=== PATIENT | male | born 1955 | race Caucasian/White ===

== ENCOUNTER 2019-05-27 16:52 | Emergency (ER) | payer MEDICARE, OTHER ==
[2019-05-27 17:12] VITALS: BP 150/69
[2019-05-27] MEDS ORDERED: Tetan/Diph/Pertus SYR(Tdap)* 0.5 ML SYR(BOOSTRIX) use SYR IM ONE (17:44)
[2019-05-27] MEDS ORDERED: Lidocaine 1% MPF ** 5 ML VIAL INJ ONE (17:44)
--- NOTE | 2019-05-27 17:45 | UC ---
General HPI - HPI Summary HPI Summary: saw blade came loose from the machine and broke apart cutting his L hand in 3 places. 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 last tetanus is not known. - History of Current Complaint Chief Complaint: UCWounds Stated Complaint: LEFT INDEX FINGER LACERATION Time Seen by Provider: 05/27/19 17:40 Hx Obtained From: Patient Onset/Duration: Sudden Onset Pain Intensity: 5 Associated Signs & Symptoms: Negative: Weakness - Allergy/Home Medications Allergies/Adverse Reactions: Allergies Allergy/AdvReac Type Severity Reaction Status Date / Time No Known Allergies Allergy Verified 05/27/19 17:12 Home Medications: Home Medications Amlodipine Besylate/Benazepril [Amlodipine-Benazepril 2.5-10] 1 cap PO DAILY [History Confirmed 05/27/19] Hydrochlorothiazide TAB* [Hydrodiuril TAB*] 25 mg PO DAILY 05/27/19 [History Confirmed 05/27/19] Rabeprazole Sodium [Aciphex] 20 mg PO DAILY 05/27/19 [History Confirmed 05/27/19 ] Sitagliptin/Metform 50/500(NF) [Janumet 50/500 (NF)] 1 tab PO DAILY 05/27/19 [ History Confirmed 05/27/19] PMH/Surg Hx/FS Hx/Imm Hx - Additional Past Medical History Additional PMH: hx L 5th finger and 1mcp joint injuries. Endocrine History: Diabetes Cardiovascular History: Hypertension GI/ History: Gastroesophageal Reflux - Surgical History Surgical History: None - Family History Known Family History: Positive: Non-Contributory - Social History Alcohol Use: Weekly Substance Use Type: None Smoking Status (MU): Former Smoker Length of Time of Smoking/Using Tobacco: 30 yr When Did the Patient Quit Smoking/Using Tobacco: 2001 - Immunization History Most Recent Tetanus Shot: 30 yrs ago Review of Systems All Other Systems Reviewed And Are Negative: No Constitutional: Negative: Fever Musculoskeletal: Negative: Decreased ROM - from baseline. Neurological: Negative: Weakness, Numbness Physical Exam Triage Information Reviewed: Yes Appearance: Well-Appearing Vital Signs: Initial Vital Signs Temp 99.2 F 05/27/19 17:05 Pulse 53 05/27/19 17:05 Resp 18 05/27/19 17:05 BP 150/69 05/27/19 17:05 Pulse Ox 99 09/20/19 17:05 Vital Signs Reviewed: Yes Cardiovascular: Positive: RRR Musculoskeletal: Positive: Other: - L hand= gross s/v/m inatc compared to baseline/ Neurological: Positive: Alert Psychological: Positive: Age Appropriate Behavior Skin Exam: Normal, Other - L hand= laceration ulnar side l index finger. 2 lacerations in dorsal web between thumb and index fingers. has has a few superfial scaps as well. Diagnostics - Radiology No standard instances Radiology Interpretation Completed By: Radiologist - MPRESSION: No radiopaque foreign body is identified. Course/Dx - Course Course Of Treatment: PROCEDURE: time out. wounds prep betadine. locals with 1 % lidociane. sites explored and no FB's, tendon or ligament injuries. wounds in web are communicating. wounds irrigated with large amounts of sterile NaCl. all wounds prep betadine. lacerations close with 5-0 nylon and simple plus horizontal mattress stitches total of 6. wound lengths of 1.5cm, 1.0cm and 1.0cm. pt tolerated well. dressed by nursing. pt tolerated well. - Differential Dx - Multi-Symptom Differential Diagnoses: Other - no fb or fx's - Diagnoses Provider Diagnosis: Laceration of hand, right Discharge ED - Sign-Out/Discharge Documenting (check all that apply): Patient Departure All imaging exams completed and their final reports reviewed: Yes - Discharge Plan Condition: Stable Disposition: HOME Patient Education Materials: Care For Your Stitches (DC) Referrals: Kayode Earl MD [Primary Care Provider] - Additional Instructions: RETURN HERE FOR SUTURE REMOVAL IN 7-10 DAYS. RETURN SOONER FOR ANY CONCERNS. - Billing Disposition and Condition Condition: STABLE Disposition: Home
== END 2019-05-27 19:10 | disposition home or self-care (01) ==
LOC: UCCORT 16:52
DX: S61.211A Laceration without foreign body of left index finger without damage to nail, initial encounter (principal); W45.8XXA Other foreign body or object entering through skin, initial encounter; Y92.9 Unspecified place or not applicable; Z23 Encounter for immunization; E11.9 Type 2 diabetes mellitus without complications; I10 Essential (primary) hypertension; K21.9 Gastro-esophageal reflux disease without esophagitis; Z87.891 Personal history of nicotine dependence
CPT/HCPCS: 12002; 90471; 90715; 99211; G0463

== ENCOUNTER 2019-06-06 16:23 | Emergency (ER) | payer OTHER ==
[2019-06-06 16:42] VITALS: BP 112/73
--- NOTE | 2019-06-06 16:51 | UC ---
UC General HPI - HPI Summary HPI Summary: pt had stitches placed in his L hand 10 days ago. he is here for suture removal. he has no complaints. - History of Current Complaint Chief Complaint: UCGeneralIllness Stated Complaint: STITCHES REMOVAL Time Seen by Provider: 06/06/19 16:45 Hx Obtained From: Patient Pain Intensity: 0 Associated Signs & Symptoms: Positive: Other - no rash. Negative: Edema, Fever - Allergy/Home Medications Allergies/Adverse Reactions: Allergies Allergy/AdvReac Type Severity Reaction Status Date / Time peanut Allergy Anaphylatic Verified 06/06/19 16:33 Shock PMH/Surg Hx/FS Hx/Imm Hx Endocrine History: Diabetes Cardiovascular History: Hypertension GI/ History: Gastroesophageal Reflux - Surgical History Surgical History: None - Family History Known Family History: Positive: Non-Contributory - Social History Alcohol Use: Weekly Substance Use Type: None Smoking Status (MU): Former Smoker Length of Time of Smoking/Using Tobacco: 30 yr When Did the Patient Quit Smoking/Using Tobacco: 2001 - Immunization History Most Recent Tetanus Shot: 05/27/19 Review of Systems All Other Systems Reviewed And Are Negative: No Constitutional: Negative: Fever Skin: Negative: Rash Musculoskeletal: Negative: Decreased ROM, Edema Neurological: Negative: Weakness, Paresthesia Physical Exam Triage Information Reviewed: Yes Appearance: Well-Appearing Vital Signs: Initial Vital Signs Temp 97.2 F 06/06/19 16:34 Pulse 47 06/06/19 16:34 Resp 16 06/06/19 16:34 BP 112/73 06/06/19 16:34 Pulse Ox 99 06/06/19 16:34 Vital Signs Reviewed: Yes Skin Exam: Other - L hand= 3 suture sites that are healed without erythema or warmth. hand has gross s/v/m function. Course/Dx - Course Course Of Treatment: procedure: sutures removed. pt tolerated well. bradycardia here but pt not symptomatic and BP 112/73. - Diagnoses Provider Diagnosis: Visit for suture removal Discharge ED - Sign-Out/Discharge Documenting (check all that apply): Patient Departure All imaging exams completed and their final reports reviewed: No Studies - Discharge Plan Condition: Stable Disposition: HOME Patient Education Materials: Stitches Removal (ED) Referrals: Kayode Earl MD [Primary Care Provider] - If Needed - Billing Disposition and Condition Condition: STABLE Disposition: Home
== END 2019-06-06 16:56 | disposition home or self-care (01) ==
LOC: UCCORT 16:23
DX: Z48.02 Encounter for removal of sutures (principal); E11.9 Type 2 diabetes mellitus without complications; I10 Essential (primary) hypertension; Z87.891 Personal history of nicotine dependence